=== PATIENT | female | born 1935 | race Two or more races ===

== ENCOUNTER 2022-04-14 13:07 | Emergency (ER) | payer OTHER ==
[~2022-04-14] VITALS: Ht 157.5 cm; Wt 65.8 kg
[2022-04-14] MEDS ORDERED: COZAAR100 MG PO (13:29)
[2022-04-14] MEDS ORDERED: LASIX20 MG (13:30)
[2022-04-14] MEDS ORDERED: SERTRALINE20 MG/1 ML (13:30)
[2022-04-14] MEDS ORDERED: AZOR 5-20 MG T1 EACH (13:30)
[2022-04-14] MEDS ORDERED: ATORVASTATIN CA20 MG PO (13:30)
[2022-04-14] MEDS ORDERED: NEXIUM40 M1 PO (13:30)
[2022-04-14] MEDS ORDERED: HORIZANT300 MG (13:31)
[2022-04-14] MEDS ORDERED: LASIX20 MG PO (18:52)
== END 2022-04-14 20:15 ==
LOC: ER 13:07
DX: R60.0 Localized edema (principal); I10 Essential (primary) hypertension; Z91.013 Allergy to seafood